=== PATIENT | female | born 1995 | race African-American/Black ===

== ENCOUNTER → 2016-10-04 | Outpatient (CLI) | payer OTHER | END | disposition home or self-care (01) | LOC: RT 08:54 | PROVIDERS: ATTEND Psychiatry & Neurology Neurology | DX: R94.01 Abnormal electroencephalogram [EEG] (principal) | CPT/HCPCS: 95816 ==

== ENCOUNTER 2016-11-03 20:16 | Emergency (ER) | payer OTHER ==
[~2016-11-03] VITALS: Ht 160 cm; Wt 73.0 kg
[2016-11-03 20:40] VITALS: BP 138/85
--- NOTE | 2016-11-03 21:35 | PHYS DOC ---
Past Medical History Past Medical History: Anxiety Past Surgical History: No Surgical History Alcohol Use: None Drug Use: None Adult General Chief Complaint Chief Complaint: ANXIETY/PANIC ATTACK HPI HPI Patient is a 20 year old female who presents with complaint of possible seizure episode. The patient was brought to the emergency department by EMS after having a witnessed seizure episode at home by family. The patient states that she had a similar episode one and a half months ago. Patient was seen by Dr. Curiel who conducted an EEG study. Patient was not found to have any significant findings for seizure activity. The patient was told to follow back up to the emergency department if she had any further episodes. The patient states that she is having headache and generalized weakness at this time. Patient states that she does not remember the episode that took place earlier. Patient does admit she has history of anxiety and was recently started on citalopram for treatment of anxiety. Patient denies any associated fevers or chest pain, or abdominal pain currently. The patient's sister states that the patient appeared to be "zoning out" earlier this evening around 1800. She states that approximately 15 minutes before EMS was called the patient laid down on a couch and started displaying "heavy breathing." Patient was not responding to anyone else at that time thus prompting the EMS call. Review of Systems Review of Systems Constitutional: Generalized fatigue, denies fever or chills [] Eyes: Denies change in visual acuity, redness, or eye pain [] HENT: Denies nasal congestion or sore throat [] Respiratory: Denies cough or shortness of breath [] Cardiovascular: Denies chest pain or edema [] GI: Denies abdominal pain, nausea, vomiting, bloody stools or diarrhea [] : Denies dysuria or hematuria [] Musculoskeletal: Denies back pain or joint pain [] Integument: Denies rash or skin lesions [] Neurologic: Headache, denies focal weakness or sensory changes [] Physical Exam Physical Exam Constitutional: Alert, afebrile, tearful, appears anxious. [] HENT: Normocephalic, atraumatic, bilateral external ears normal, oropharynx moist, no oral exudates, nose normal. [] Eyes: PERRLA, EOMI, conjunctiva normal, no discharge. [] Neck: Normal range of motion, no tenderness, supple, no stridor. [] Cardiovascular:Heart rate regular rhythm, no murmur [] Lungs & Thorax: Bilateral breath sounds clear to auscultation [] Abdomen: Bowel sounds normal, soft, no tenderness, no masses, no pulsatile masses. [] Skin: Warm, dry, no erythema, no rash. [] Back: No tenderness, no CVA tenderness. [] Extremities: No tenderness, no cyanosis, no clubbing, ROM intact, no edema. [] Neurologic: Alert and oriented X 3, normal motor function, normal sensory function, no focal deficits noted. [] Current Patient Data Vital Signs Vital Signs Date Time Temp Pulse Resp B/P Pulse Ox O2 Delivery O2 Flow Rate FiO2 11/03/16 20:40 97.6 76 22 138/85 100 Room Air 97.6 Lab Values Laboratory Tests Test 11/03/16 21:30 11/03/16 21:33 11/03/16 22:05 White Blood Count 7.1x10^3/uL (4.0-11.0) Red Blood Count 4.24x10^6/uL (3.50-5.40) Hemoglobin 12.3g/dL (12.0-15.5) Hematocrit 37.2% (36.0-47.0) Mean Corpuscular Volume 88fL (79-100) Mean Corpuscular Hemoglobin 29pg (25-35) Mean Corpuscular Hemoglobin Concent 33g/dL (31-37) Red Cell Distribution Width 12.9% (11.5-14.5) Platelet Count 304x10^3/uL (140-400) Neutrophils (%) (Auto) 70% (31-73) Lymphocytes (%) (Auto) 16% (24-48) L Monocytes (%) (Auto) 13% (0-9) H Eosinophils (%) (Auto) 1% (0-3) Basophils (%) (Auto) 1% (0-3) Neutrophils # (Auto) 5.0x10^3uL (1.8-7.7) Lymphocytes # (Auto) 1.1x10^3/uL (1.0-4.8) Monocytes # (Auto) 0.9x10^3/uL (0.0-1.1) Eosinophils # (Auto) 0.0x10^3/uL (0.0-0.7) Basophils # (Auto) 0.0x10^3/uL (0.0-0.2) Sodium Level 142mmol/L (136-145) Potassium Level 3.4mmol/L (3.5-5.1) L Chloride Level 105mmol/L (98-107) Carbon Dioxide Level 21mmol/L (21-32) Anion Gap 16 (6-14) H Blood Urea Nitrogen 9mg/dL (7-20) Creatinine 0.9mg/dL (0.6-1.0) Estimated GFR (Cockcroft-Gault) 97.6 BUN/Creatinine Ratio 10 (6-20) Glucose Level 89mg/dL (70-99) Calcium Level 9.8mg/dL (8.5-10.1) Total Bilirubin 0.6mg/dL (0.2-1.0) Aspartate Amino Transferase (AST) 22U/L (15-37) Alanine Aminotransferase (ALT) 26U/L (14-59) Alkaline Phosphatase 73U/L (46-116) Total Protein 7.9g/dL (6.4-8.2) Albumin 4.9g/dL (3.4-5.0) Albumin/Globulin Ratio 1.6 (1.0-1.7) POC Urine HCG, Qualitative Hcg negative (Negative) Urine Collection Type Unknown Urine Color Elisa Urine Clarity Clear Urine pH 6.0 Urine Specific [place] >=1.030 Urine Protein 30mg/dL (NEG-TRACE) Urine Glucose (UA) Negativemg/dL (NEG) Urine Ketones (Stick) 40mg/dL (NEG) Urine Blood Negative (NEG) Urine Nitrite Negative (NEG) Urine Bilirubin Small (NEG) Urine Urobilinogen Dipstick 1.0mg/dL (0.2 mg/dL) Urine Leukocyte Esterase Negative (NEG) Urine RBC 0/HPF (0-2) Urine WBC 1-4/HPF (0-4) Urine Squamous Epithelial Cells Occ/LPF Urine Bacteria Few/HPF (0-FEW) Urine Mucus Marked/LPF Urine Opiates Screen Neg (NEG) Urine Methadone Screen Neg (NEG) Urine Barbiturates Neg (NEG) Urine Phencyclidine Screen Neg (NEG) Urine Amphetamine/Methamphetamine Neg (NEG) Urine Benzodiazepines Screen Neg (NEG) Urine Cocaine Screen Neg (NEG) Urine Cannabinoids Screen Neg (NEG) Urine Ethyl Alcohol Neg (NEG) Laboratory Tests 11/03/16 21:30 Laboratory Tests 11/03/16 21:30 EKG EKG Interpreted by me: Heart rate 65, sinus rhythm, normal intervals, normal axis, no acute ST/T-wave abnormalities present [] Radiology/Procedures Radiology/Procedures Not performed [] Course & Med Decision Making Course & Med Decision Making Pertinent Labs and Imaging studies reviewed. (See chart for details) The patient was observed in the emergency department with no further seizure- like activity observed. Patient's symptoms have resolved and patient feels much better at this time. Patient's blood work unremarkable. I consult to Dr. Cabrera of neurology and spoke with him regarding the case. At this time we agree that the patient is highly suspicious for possible pseudoseizure or anxiety related episodes. He recommended that the patient be started on Xanax medication as needed to help with symptoms and recommended follow-up in one week with Dr. Curiel. Advised return to the emergency department for any worsening symptoms. Patient was understanding and in agreement with treatment plan. Dragon Disclaimer Dragon Disclaimer This electronic medical record was generated, in whole or in part, using a voice recognition dictation system. Departure Departure Impression: Primary Impression: Seizure Additional Impression: Anxiety Disposition: 01 HOME, SELF-CARE Condition: IMPROVED Referrals: PRIYA PULIDO MD (PCP) KOKI CURIEL MD Patient Instructions: Anxiety and Panic Attacks, Seizure, Adult Additional Instructions: Follow-up with Dr. Curiel in one week. Return to the emergency department for any worsening symptoms. Scripts Alprazolam 0.25 Mg Tablet0.25 Mg PO Q6HRS PRN ANXIETY / AGITATION #30 TAB Ref 0 Prov:RAJAN RICHARDSON MD 11/03/16 Problem Qualifiers RAJAN RICHARDSON MD Nov 03, 2016 21:35
[2016-11-03 21:44] LABS: BASO % 1 % (0-3); EOS % 1 % (0-3); HEMATOCRIT 37.2 % (36.0-47.0); HEMOGLOBIN 12.3 g/dL (12.0-15.5); LYMPH # 1.1 x10^3/uL (1.0-4.8); LYMPH % 16 % (24-48); MEAN CORPUSCULAR HEMOGLOBIN 29 pg (25-35); MEAN CORPUSCULAR HGB CONC 33 g/dL (31-37); MEAN CORPUSCULAR VOLUME 88 fL (79-100); MONO % 13 % (0-9); NEUT % 70 % (31-73); PLATELET COUNT 304 x10^3/uL (140-400); RED BLOOD COUNT 4.24 x10^6/uL (3.50-5.40); RED CELL DISTRIBUTION WIDTH 12.9 % (11.5-14.5); WHITE BLOOD COUNT 7.1 x10^3/uL (4.0-11.0)
[2016-11-03 21:47] LABS: CALCIUM 9.8 mg/dL (8.5-10.1); CREATININE 0.9 mg/dL (0.6-1.0); GFR 97.6; POTASSIUM 3.4 mmol/L (3.5-5.1)
[2016-11-03 21:54] LABS: ALBUMIN 4.9 g/dL (3.4-5.0); ALBUMIN/GLOBULIN RATIO 1.6 (1.0-1.7); TOTAL BILIRUBIN 0.6 mg/dL (0.2-1.0); TOTAL PROTEIN 7.9 g/dL (6.4-8.2)
[2016-11-03 22:38] LABS: BILIRUBIN,URINE SMALL (NEG); GLUCOSE,URINE NEGATIVE (NEG); NITRITE,URINE NEGATIVE (NEG); PROTEIN,URINE 30 mg/dL (NEG-TRACE)
[2016-11-03 22:43] LABS: BACTERIA,URINE FEW /HPF (0-FEW); RBC,URINE 0 /HPF (0-2); SQUAMOUS EPITHELIAL CELL,UR OCC /LPF
[2016-11-03 22:45] LABS: BARBITURATES NEG (NEG); BENZODIAZEPINES NEG (NEG); CANNABINOIDS NEG (NEG); COCAINE NEG (NEG); ETHANOL, URINE NEG (NEG); METHADONE NEG (NEG); OPIATES NEG (NEG); PHENCYCLIDINE NEG (NEG)
--- NOTE | 2016-11-03 22:46 | ACF ---
Admission Forms Criteria PSYCHIATRIC DISORDERS Clinical Indications for Inpatient Care (Place 'X' for any and all applicable criteria): Ongoing inpatient care may be needed for ANY ONE of the following(1)(2)(3)(4)(6) (7)(8): [ ]I. Danger to self or others not manageable at lower level of care. [ ]II. Grave disability (eg, inability to perform self care necessary at lower level of care) [ ]III. Agitation or inappropriate behavior interfering with care for primary condition (eg, attempting to discontinue lines or drains prematurely, unable to cooperate with respiratory care) [X]IV. Severe disability or disorder indicated by ALL of the following: [X]a) Severe behavioral health disorder-related symptoms or condition indicated by ANY ONE of the following: [ ]i) Severe problem with cognition, memory, judgment, or impulse control [X]ii) Severe clinical manifestations (eg, hallucinations, delusions, other acute psychotic symptoms, murphy, extreme agitation or anxiety) [X]b) Patient management at lower level of care is not feasible until acute intervention or modification is initiated. Extended stay beyond goal length of stay for the primary condition may be indicated when ANY ONE of the following is present: (1)(2)(3)(4): [ ]a) Patient is a danger to self or others and not manageable at lower level of care. [ ]b) Behavior crisis management, including physical or chemical restraints, is required and is not available at a lower level of care. [ ]c) Behavioral symptoms (e.g., agitation, somnolence, inappropriate behavior) are present, and are not manageable at a lower level of care. [ ]d) Patient cannot understand follow-up treatment and crisis plan. [ ]e) Provider and supports are not sufficiently available at lower level of care. [ ]f) Patient cannot participate (e.g., verify absence of plan for harm) and is in needed of monitoring. The original [facility] content created by [facility] has been revised. The portions of the content which have been revised are identified through the use of italic text or in bold, and [facility] has neither reviewed nor approved the modified material. All other unmodified content is copyright [facility]. Please see references footnoted in the original [facility] 2016 Admission Criteria Met?: Yes SINAI HENRY Nov 03, 2016 22:46
[2016-11-03] MEDS ORDERED: ALPR0.254 PO (23:35)
--- NOTE | 2016-11-04 06:29 | EKG ---
[facility] [address] [place] [address] Test Date: 2016-11-03 Test Time: 22:20:41 Pat Name: PHILIP MCBRIDE Department: Room: Gender: F Furnace Operator And Tender: : 1995 Requested By: RAJAN RICHARDSON Order Number: [id number] Reading MD: Anahy Bach Measurements Intervals [place] Rate: 65 P: 46 [place]: 130 QRS: 74 QRSD: 88 T: 35 QT: 384 QTc: 400 Interpretive Statements SINUS RHYTHM LEFT ATRIAL ABNORMALITY ABNORMAL EKG RI6.01 Unconfirmed report No previous ECG available for comparison Electronically Signed On 11-09-2016 12:42:13 CDT by Anahy Bach
== END 2016-11-04 00:32 | disposition home or self-care (01) ==
LOC: ER 20:16
DX: R56.9 Unspecified convulsions (principal); F41.9 Anxiety disorder, unspecified; R51 Headache; R53.1 Weakness
CPT/HCPCS: 36415; 80053; 80305; 81001; 81025; 85027; 93005; G0481; 99285-25

== ENCOUNTER → 2016-12-03 | Outpatient (CLI) | payer OTHER ==
[2016-11-03 20:40] VITALS: BP 138/85
[~2016-12-03] MED LIST: ALPR0.254 PO
== END | disposition home or self-care (01) ==
LOC: SLPLAB 06:09
PROVIDERS: ATTEND Psychiatry & Neurology Neurology
DX: R55 Syncope and collapse (principal)
CPT/HCPCS: 95951

== ENCOUNTER → 2018-02-27 | Outpatient (CLI) | payer OTHER ==
--- NOTE | 2018-02-27 12:03 | EKG ---
[facility] [address] [place] [address] Test Date: 2018-02-27 Test Time: 11:57:43 Pat Name: PHILIP MCBRIDE Department: Room: Gender: F News Writer: JAQUAN : 1995 Requested By: KOKI SALINAS Order Number: [id number] Reading MD: Measurements Intervals [place] Rate: 58 P: 59 AR: 142 QRS: 81 QRSD: 90 T: 48 QT: 382 QTc: 378 Interpretive Statements SINUS RHYTHM NO SPECIFIC ECG ABNORMALITIES RI6.01 Compared to ECG 11/03/2016 22:20:41 Atrial abnormality no longer present
[2018-02-27 12:16] LABS: POTASSIUM 3.4 mmol/L (3.5-5.1)
== END | disposition home or self-care (01) ==
LOC: LAB 11:39
PROVIDERS: ATTEND Psychiatry & Neurology Neurology
DX: R00.2 Palpitations (principal); F41.0 Panic disorder [episodic paroxysmal anxiety]
CPT/HCPCS: 36415; 80051; 82607; 82947; 84443; 93005

== ENCOUNTER 2018-11-07 19:55 | Emergency (ER) | payer OTHER ==
[~2018-11-07] VITALS: Ht 160 cm; Wt 64.9 kg
[2018-11-07 20:10] VITALS: BP 135/83
[2018-11-07] MEDS ORDERED: [UNRECOGNIZED DRUG - REMARK] (20:28)
--- NOTE | 2018-11-07 23:01 | PHYS DOC ---
Past Medical History Past Medical History: Anxiety Past Surgical History: No Surgical History Alcohol Use: None Drug Use: Marijuana Adult General Chief Complaint Chief Complaint: HAND PROBLEM HPI HPI Patient is a 22 year old female who presents with subungual hematoma to left second finger. Patient states she injured her index finger 2 days ago. On exam, the patient has no deformity, she has bruising noted over the finger pad and hematoma involving approximately 75% of the nail. It is no separation of the nail from the nailbed. There is no deformity to the nail or overlying abrasion or laceration. [] Review of Systems Review of Systems Review symptoms as per history of present illness. All other systems were reviewed and found to be within normal limits, except as documented in this note. Allergies Allergies Allergies Coded Allergies Type Severity Reaction Last Updated Verified diphenhydramine Allergy Unknown RASH 11/07/18 Yes zinc acetate Allergy Unknown RASH 11/07/18 Yes Physical Exam Physical Exam Constitutional: Well developed, well nourished, no acute distress, non-toxic appearance. [] HENT: Normocephalic, atraumatic, bilateral external ears normal, oropharynx moist, no oral exudates, nose normal. [] Eyes: PERRLA, EOMI, conjunctiva normal, no discharge. [] Muscloskeletal: Subungual hematoma old left index finger, no finger, contusion to finger pad.[]] Current Patient Data Vital Signs Vital Signs Date Time Temp Pulse Resp B/P (MAP) Pulse Ox O2 Delivery O2 Flow Rate FiO2 11/07/18 20:10 98.4 74 20 135/83 (100) 98 Room Air 98.4 EKG EKG [] Radiology/Procedures Radiology/Procedures [Nail trephination Fingernail was likely cleansed, and portable electric cautery knife was used to trephinate the nail in 3 locations and a small amount of dark red blood was expressed given partial relief of the patient's symptoms. The finger was then bandaged. She was instructed follow-up with her PCP for further evaluation.] Course & Med Decision Making Course & Med Decision Making Pertinent Labs and Imaging studies reviewed. (See chart for details) [Symptoms improved in the ED.] Dragon Disclaimer Dragon Disclaimer This electronic medical record was generated, in whole or in part, using a voice recognition dictation system. Departure Departure Impression: Primary Impression: Subungual hematoma Disposition: HOME, SELF-CARE Condition: GOOD Patient Instructions: Subungual Hematoma, [id number] Additional Instructions: Please keep fingernail clean, dry and covered. Take ibuprofen as needed for pain. Follow up with PCP for re-evaluation. CECY NG DO Nov 07, 2018 23:01
== END 2018-11-07 21:52 | disposition home or self-care (01) ==
LOC: ER 19:55
DX: S60.122A Contusion of left index finger with damage to nail, initial encounter (principal); Z88.5 Allergy status to narcotic agent; Z88.8 Allergy status to other drugs, medicaments and biological substances; W23.0XXA Caught, crushed, jammed, or pinched between moving objects, initial encounter; Y93.89 Activity, other specified; Y92.89 Other specified places as the place of occurrence of the external cause; Y99.8 Other external cause status
CPT/HCPCS: 11740; 99283-25

== ENCOUNTER → 2021-09-03 | Outpatient (CLI) | payer MEDICAID ==
[~2021-09-03] MED LIST changes: +[UNRECOGNIZED DRUG - REMARK]
[2021-09-03 15:56] LABS: HEMATOCRIT 35.4 % (36.0-47.0); HEMOGLOBIN 11.5 g/dL (12.0-15.5); RED BLOOD COUNT 3.95 x10^6/uL (3.50-5.40); RED CELL DISTRIBUTION WIDTH 12.8 % (11.5-14.5); WHITE BLOOD COUNT 6.5 x10^3/uL (4.0-11.0)
[2021-09-04 15:17] LABS: RUBELLA IGG ANTIBODY 9.35 index (Immune >0.99)
== END ==
LOC: LAB 15:16
PROVIDERS: ATTEND Obstetrics & Gynecology
DX: Z34.91 Encounter for supervision of normal pregnancy, unspecified, first trimester (principal)
CPT/HCPCS: 36415; 85027; 85660; 86592; 86703; 86762; 86787; 86803; 86850; 86900; 86901; 87340

== ENCOUNTER → 2021-09-07 | Outpatient (CLI) | payer MEDICAID ==
--- NOTE | 2021-09-07 16:22 | RAD ---
EXAM: Obstetrics sonogram. HISTORY: Supervision of . TECHNIQUE: Sonographic imaging of the pelvis was performed. COMPARISON: None. FINDINGS: The uterus measures 12.5 x 6.0 cm. The cervix measures 4.5 cm in length. There is a single intrauterine gestational sac with pole. The crown-rump length is 3.97 cm, corresponding w ith a gestational age of 10 weeks and 6 days and due date is 03/30/2022. The heart rate is 155 b pm. The gestational sac is positioned inferiorly within the uterine cavity. The amniotic fluid volume is normal. No subchorionic hematoma is seen. The maternal ovaries are unremarkable. IMPRESSION: 1. Single intrauterine fetus with normal heart rate and gestational age based on ultrasound measureme nts of 10 weeks and 6 days. 2. Note is made that the gestational sac is positioned near the lower uterine segment. No subchorioni c hematoma is seen and the gestational sac is normal in configuration. Electronically signed by: Felicia Sutton MD (09/07/2021 4:19 PM) [id number]
== END ==
LOC: US 15:15
PROVIDERS: ATTEND Obstetrics & Gynecology
DX: O00.01 Abdominal pregnancy with intrauterine pregnancy (principal); Z3A.10 10 weeks gestation of pregnancy
CPT/HCPCS: 76801